=== PATIENT | female | born 1945 | race Caucasian/White ===

== ENCOUNTER 2019-11-16 06:05 | Day surgery (SDC) | payer OTHER ==
[~2019-11-16 06:05] MED LIST: CEVIMELINE HCL30 MG PO; PAXIL20 MG
[2019-11-16] MEDS ORDERED: PERCOCET 5-3251 EACH PO (09:59)
== END 2019-11-16 13:30 | disposition home or self-care (01) ==
LOC: CIR.AMB 06:05
DX: R15.9 Full incontinence of feces (principal)
CPT/HCPCS: 64581; C1778

== ENCOUNTER 2019-11-22 12:45 | Emergency (ER) | payer OTHER ==
[~2019-11-22] VITALS: Ht 152.4 cm; Wt 70.3 kg
[~2019-11-22 12:45] MED LIST changes: +PERCOCET 5-3251 EACH PO
== END 2019-11-22 18:55 | disposition home or self-care (01) ==
LOC: ER 12:45
DX: K52.89 Other specified noninfective gastroenteritis and colitis (principal)

== ENCOUNTER 2019-11-30 08:50 | Day surgery (SDC) | payer OTHER | END 2019-11-30 13:15 | disposition home or self-care (01) | LOC: CIR.AMB 08:50 | DX: R15.9 Full incontinence of feces (principal) | CPT/HCPCS: 64581; C1778 ==

== ENCOUNTER 2023-02-04 05:45 | Day surgery (SDC) | payer OTHER ==
[~2023-02-04] VITALS: Ht 152.4 cm; Wt 74.4 kg
[~2023-02-04 05:45] MED LIST changes: +CLONAZEPAM1 MG PO; +EVOXAC30 MG PO; +MYRBETRIQ50 MG PO
[2023-02-04] MEDS ORDERED: TRAM1TAB98 PO (11:32)
== END 2023-02-04 14:25 | disposition home or self-care (01) ==
LOC: CIR.AMB 05:45
PROVIDERS: ATTEND Surgery
DX: R15.9 Full incontinence of feces (principal); Z20.822 Contact with and (suspected) exposure to COVID-19; I10 Essential (primary) hypertension

== ENCOUNTER 2024-03-07 07:44 | Day surgery (SDC) | payer OTHER ==
[~2024-03-07 07:44] MED LIST changes: +TRAM1TAB98 PO
[2024-03-07] MEDS ORDERED: MIDAZOLAM HCL 2 MG/2 ML VIAL IV ONE (11:45)
[2024-03-07] MEDS ORDERED: DIPHENHYDRAMINE HCL 50 MG/ML VIAL 1ML IV ONE (11:45)
[2024-03-07] MEDS ORDERED: ONDANSETRON HCL 2 MG/ML VIAL IV ONE (11:45)
[2024-03-07] MEDS ORDERED: fentaNYL CITRATE 50 MCG/ML AMPUL IV PUSH ONE (11:45)
== END 2024-03-07 13:00 | disposition home or self-care (01) ==
LOC: AMB-ENDOS 07:44
PROVIDERS: ATTEND Colon & Rectal Surgery
DX: K63.5 Polyp of colon (principal); K57.30 Diverticulosis of large intestine without perforation or abscess without bleeding; Z91.018 Allergy to other foods; K64.8 Other hemorrhoids